=== PATIENT | female | born 1980 | race Caucasian/White ===

== ENCOUNTER 2018-10-19 08:11 | Inpatient (IN) | payer MEDICAID, OTHER ==
[~2018-10-19] VITALS: Ht 167.6 cm; Wt 70.5 kg
[~2018-10-19 08:11] MED LIST: RISP1TAB89 PO; SERT50TA12 PO
[2018-10-19] MEDS ORDERED: HYD25 PO (08:47)
[2018-10-19] MEDS ORDERED: ACYC200C PO (08:47)
[2018-10-19] MEDS ORDERED: DOXY100C PO (08:47)
[2018-10-19] MEDS ORDERED: BUPR75 PO (08:47)
[2018-10-19] MEDS ORDERED: SERT100T12 PO (08:47)
[2018-10-19] MEDS ORDERED: HALOPERIDOL LACTATE 5 MG/ML VIAL IM ONE (09:00)
[2018-10-19] MEDS ORDERED: DiphenhydrAMINE HCL 50 MG/ML VIAL IM ONE (09:00)
[2018-10-19] MEDS ORDERED: LORazepam 2 MG/ML VIAL IM ONE (09:00)
[2018-10-19 09:17] LABS: BASOPHILS % (AUTO) 1.5 % (0.0-2.0); EOSINOPHILS % (AUTO) 1.9 % (1.0-6.0); HEMATOCRIT 40.9 % (36-46); HEMOGLOBIN 13.8 g/dL (12.0-16.0); LYMPHOCYTES # (AUTO) 0.7 K/uL (1.0-4.8); LYMPHOCYTES % (AUTO) 16.7 % (22.0-44.0); MEAN CORPUSCULAR HEMOGLOBIN 30.9 pg (26.0-34.0); MEAN CORPUSCULAR HGB CONC 33.6 G/dL (31.0-37.0); MEAN CORPUSCULAR VOLUME 92 fL (80-100); MONOCYTES # (AUTO) 0.4 K/uL (0.1-1.0); MONOCYTES % (AUTO) 8.9 % (2.0-9.0); NEUTROPHILS # (AUTO) 2.9 K/uL (1.8-7.7); PLATELET COUNT (AUTO) 250 K/uL (150-450); RED BLOOD CELL COUNT(AUTO) 4.45 MIL/uL (4.00-5.20); RED CELL DISTRIBUTION WIDTH 13.5 % (11.5-14.5)
[2018-10-19 09:28] LABS: ANION GAP 11 mmol/L (8-16); CALCIUM, TOTAL 9.5 mg/dL (8.8-10.5); CARBON DIOXIDE 27 mmol/L (22-29); CHLORIDE 102 mmol/L (98-107); CREATININE 0.88 mg/dL (0.60-1.30); GLOMERULAR FILTR. RATE CALC > 60 mL/min (>60); GLUCOSE,RANDOM 87 mg/dL (70-110); POTASSIUM 3.9 mmol/L (3.5-5.1); SODIUM SERUM 140 mmol/L (136-145); UREA NITROGEN, BLOOD 14 mg/dL (7-18)
[2018-10-19 09:33] LABS: AMPHET/METH SCREEN,URINE NEGATIVE (NEGATIVE); BARBITURATE SCREEN, URINE NEGATIVE (NEGATIVE); BENZODIAZEPINES SCREEN,URINE NEGATIVE (NEGATIVE); CANNABINOID SCREEN,URINE NEGATIVE (NEGATIVE); COCAINE SCREEN,URINE NEGATIVE (NEGATIVE); METHADONE SCREEN, URINE NEGATIVE (NEGATIVE); OPIATE SCREEN,URINE NEGATIVE (NEGATIVE)
[2018-10-19 09:34] LABS: ALANINE AMINOTRANSFERASE 123 U/L (12-78); ALBUMIN 4.2 g/dL (3.4-5.0); ALKALINE PHOSPHATASE 69 U/L (46-116); ASPARTATE AMINOTRANSFERASE 89 U/L (15-37); BILIRUBIN,TOTAL 0.6 mg/dL (0.1-1.0)
[2018-10-19 09:35] LABS: PHENCYCLIDINE SCREEN,URINE NEGATIVE (NEGATIVE)
[2018-10-19] MEDS ORDERED: HALOPERIDOL 5 MG TABLET PO PRN (09:45)
[2018-10-19] MEDS ORDERED: ZOLPIDEM TARTRATE 10 MG TABLET PO PRN (09:45)
[2018-10-19] MEDS ORDERED: ACETAMINOPHEN 325 MG TABLET PO PRN ×2 (10:00→16:00)
[2018-10-19] MEDS ORDERED: IBUPROFEN 400 MG TABLET PO PRN ×2 (10:00→16:00)
[2018-10-19 14:35] VITALS: BP 100/68
[2018-10-19] MEDS ORDERED: PETROLATUM,WHITE 71 GM JELLY TP PRN (16:00)
[2018-10-19] MEDS ORDERED: GuaiFENesin/D-METHORPHAN [SUGAR-FREE] 200-20MG/10 ML SYRUP UDCUP PO PRN (16:00)
[2018-10-19] MEDS ORDERED: NICOTINE 14 MG/24 HOUR PATCH TD PRN (16:00)
[2018-10-19] MEDS ORDERED: DOCUSATE SODIUM 100 MG CAPSULE PO PRN (16:00)
[2018-10-19] MEDS ORDERED: ALBUTEROL SULFATE HFA 90 MCG/PUFF 8 GM INHALER IH PRN (16:00)
[2018-10-19] MEDS ORDERED: MAG HYDROX/AL HYDROX/SIMETH ES 30 ML SUSPENSION UDCUP PO PRN (16:00)
[2018-10-19] MEDS ORDERED: CloNIDine HCL 0.1 MG TABLET PO PRN (16:00)
[2018-10-19] MEDS ORDERED: MAGNESIUM HYDROXIDE SUSPENSION 30 ML UDCUP PO PRN (16:00)
[2018-10-19] MEDS ORDERED: ONDANSETRON HCL 4 MG TABLET PO PRN (16:00)
[2018-10-19] MEDS ORDERED: LOPERAMIDE HCL 2 MG CAPSULE PO PRN (16:00)
[2018-10-19 20:07] VITALS: BP 109/63
[2018-10-19 20:47] LABS: APPEARANCE,URINE CLEAR (CLEAR); BILIRUBIN,URINE NEGATIVE (NEGATIVE); GLUCOSE, URINE (UA) NEGATIVE (NEGATIVE); KETONES,URINE NEGATIVE (NEGATIVE); LEUKOCYTE ESTERASE ,URINE NEGATIVE (NEGATIVE); NITRATE,URINE NEGATIVE (NEGATIVE); OCCULT BLOOD,URINE MODERATE (NEGATIVE); PROTEIN,URINE NEGATIVE (NEGATIVE); UROBILINOGEN,URINE 0.2 mg/dL (<=1.0)
[2018-10-19 20:59] LABS: BACTERIA,URINE Few /HPF (None Seen); RBC,URINE 0-2 /HPF (0-2); SQUAMOUS EPITHELIAL CELL,UR Few /LPF (None Seen); WBC,URINE 0-2 /HPF (0-5)
[2018-10-20 08:00] VITALS: BP 140/89
[2018-10-20] MEDS: DOXYCYCLINE HYCLATE 100 MG CAPSULE PO SCH (09:57)
[2018-10-20] MEDS: ACYCLOVIR 200 MG CAPSULE PO SCH ×2 (09:58→16:35)
[2018-10-20 12:03] LABS: BASOPHILS % (AUTO) 1.2 % (0.0-2.0); EOSINOPHILS % (AUTO) 2.5 % (1.0-6.0); HEMATOCRIT 37.7 % (36-46); HEMOGLOBIN 12.6 g/dL (12.0-16.0); LYMPHOCYTES # (AUTO) 0.8 K/uL (1.0-4.8); LYMPHOCYTES % (AUTO) 21.1 % (22.0-44.0); MEAN CORPUSCULAR HEMOGLOBIN 30.9 pg (26.0-34.0); MEAN CORPUSCULAR HGB CONC 33.4 G/dL (31.0-37.0); MEAN CORPUSCULAR VOLUME 92 fL (80-100); MONOCYTES # (AUTO) 0.4 K/uL (0.1-1.0); MONOCYTES % (AUTO) 9.8 % (2.0-9.0); NEUTROPHILS # (AUTO) 2.6 K/uL (1.8-7.7); NEUTROPHILS % (AUTO) 65.4 % (40.0-70.0); PLATELET COUNT (AUTO) 234 K/uL (150-450); RED BLOOD CELL COUNT(AUTO) 4.09 MIL/uL (4.00-5.20); RED CELL DISTRIBUTION WIDTH 13.5 % (11.5-14.5)
[2018-10-20 12:46] LABS: HEMOGLOBIN A1C 5.3 % (4.5-6.2)
[2018-10-20 12:51] LABS: ALANINE AMINOTRANSFERASE 104 U/L (12-78); ALBUMIN 3.5 g/dL (3.4-5.0); ALKALINE PHOSPHATASE 54 U/L (46-116); ANION GAP 6 mmol/L (8-16); ASPARTATE AMINOTRANSFERASE 94 U/L (15-37); BILIRUBIN,TOTAL 0.2 mg/dL (0.1-1.0); CALCIUM, TOTAL 8.3 mg/dL (8.8-10.5); CARBON DIOXIDE 28 mmol/L (22-29); CHLORIDE 105 mmol/L (98-107); CHOL/HDL RATIO 2.1 (3.9-5.7); CHOLESTEROL 130 mg/dL (131-200); CREATININE 0.71 mg/dL (0.60-1.30); GLOMERULAR FILTR. RATE CALC > 60 mL/min (>60); GLUCOSE,RANDOM 92 mg/dL (70-110); HDL CHOLESTEROL 61 mg/dL (40-60); LDL CHOL (CALC.) 62 mg/dL (0-130); POTASSIUM 4.1 mmol/L (3.5-5.1); SODIUM SERUM 139 mmol/L (136-145); THYROID STIMULATING HORMONE 1.29 uIU/mL (0.36-3.74); TRIGLYCERIDES 36 mg/dL (15-150); UREA NITROGEN, BLOOD 22 mg/dL (7-18)
[2018-10-20] MEDS: SERTRALINE HCL 100 MG TABLET PO SCH (15:30)
[2018-10-20 16:30] VITALS: BP 132/78
[2018-10-20] MEDS: HydrOXYzine HCL 25 MG TABLET PO SCH (16:35)
[2018-10-20] MEDS ORDERED: BuPROPion HCL 75 MG TABLET PO SCH (17:00)
[2018-10-20] MEDS: RisperiDONE 1 MG TABLET PO SCH (20:26)
[2018-10-21 03:32] VITALS: BP 126/81
[2018-10-21] MEDS: DOXYCYCLINE HYCLATE 100 MG CAPSULE PO SCH (09:01)
[2018-10-21] MEDS: SERTRALINE HCL 100 MG TABLET PO SCH (09:02)
[2018-10-21] MEDS: ACYCLOVIR 200 MG CAPSULE PO SCH ×2 (09:02→16:08)
[2018-10-21] MEDS: BuPROPion HCL 150 MG SR TABLET PO SCH ×2 (09:02→17:33)
[2018-10-21] MEDS: HydrOXYzine HCL 25 MG TABLET PO SCH ×3 (09:05→16:08)
[2018-10-21 09:13] VITALS: BP 100/74
[2018-10-21] MEDS: LORazepam 2 MG TABLET PO PRN (16:08)
[2018-10-21 18:08] VITALS: BP 131/53
[2018-10-21] MEDS: RisperiDONE 1 MG TABLET PO SCH (21:00)
[2018-10-22 04:07] VITALS: BP 122/68
[2018-10-22] MEDS: SERTRALINE HCL 100 MG TABLET PO SCH (09:01)
[2018-10-22] MEDS: BuPROPion HCL 150 MG SR TABLET PO SCH (09:01)
[2018-10-22] MEDS: DOXYCYCLINE HYCLATE 100 MG CAPSULE PO SCH (09:01)
[2018-10-22] MEDS: HydrOXYzine HCL 25 MG TABLET PO SCH ×2 (09:01→12:35)
[2018-10-22] MEDS: ACYCLOVIR 200 MG CAPSULE PO SCH (09:02)
[2018-10-22] MEDS: LORazepam 2 MG TABLET PO PRN (09:03)
[2018-10-22 10:15] VITALS: BP 117/92
[2018-10-22] MEDS ORDERED: HYD25 PO (11:24)
[2018-10-22] MEDS ORDERED: RISP1 PO (11:24)
[2018-10-22] MEDS ORDERED: BUPR150SR PO (11:24)
[2018-10-22] MEDS ORDERED: SERT100T12 PO (11:24)
== END 2018-10-22 14:06 | disposition home or self-care (01) | DRG 750 ==
LOC: EMS 08:11 → 3EI 13:33
PROVIDERS: ADMIT Psychiatry & Neurology Psychiatry; ATTEND Psychiatry & Neurology Psychiatry
DX: F25.1 Schizoaffective disorder, depressive type (principal); B18.2 Chronic viral hepatitis C; F10.10 Alcohol abuse, uncomplicated; F17.200 Nicotine dependence, unspecified, uncomplicated; F41.9 Anxiety disorder, unspecified; F15.90 Other stimulant use, unspecified, uncomplicated; F19.10 Other psychoactive substance abuse, uncomplicated; D72.819 Decreased white blood cell count, unspecified; Z79.899 Other long term (current) drug therapy; Z71.6 Tobacco abuse counseling; Z71.41 Alcohol abuse counseling and surveillance of alcoholic; Z88.0 Allergy status to penicillin; Z71.51 Drug abuse counseling and surveillance of drug abuser
CPT/HCPCS: 83036; 84443; 96372; G0480; J1200; J1630; J2060